=== PATIENT | female | born 1950 | race Caucasian/White ===

== ENCOUNTER 2017-12-17 14:09 | Inpatient (IN) | payer MEDICARE, OTHER ==
[~2017-12-17] VITALS: Ht 175.3 cm; Wt 87.1 kg
[2017-12-17 14:19] VITALS: BP 140/67
[2017-12-17] MEDS ORDERED: LISINOPRIL-HCT1 EAC2 PO (14:26)
[2017-12-17] MEDS ORDERED: NORVASC5 MG PO (14:27)
[2017-12-17] MEDS ORDERED: RANITIDINE 150150 M1 PO (14:27)
[2017-12-17] MEDS ORDERED: PRILOSEC 20 MG20 MG PO (14:28)
[2017-12-17] MEDS ORDERED: METFORMIN HCL500 MG PO (14:28)
[2017-12-17] MEDS ORDERED: MOBIC15 MG PO (14:28)
[2017-12-17] MEDS ORDERED: HYDROCODONE-AP1 EAC6 PO (14:29)
[2017-12-17] MEDS ORDERED: NORTRIPTYLINE H25 M3 PO (14:29)
[2017-12-17] MEDS ORDERED: LIORESAL 10 MG10 MG PO (14:29)
[2017-12-17] MEDS ORDERED: NASACORT10.8 ML NASAL (14:30)
[2017-12-17] MEDS ORDERED: PAXIL20 MG PO (14:30)
[2017-12-17] MEDS ORDERED: EPIPEN0.3 MG/0.1 IM (14:31)
[2017-12-17] MEDS ORDERED: PREDNISONE 20 M20 MG PO (14:32)
[2017-12-17 15:05] LABS: HEMOGLOBIN 11.6 gm/dL (12.0-15.0); MCHC 33.1 g/dL (28.0-37.0); MCV 90.8 fL (80.0-100.0); MPV 7.3 fl. (7.2-11.1); NUCLEATED RBCS 0 /100WBC; PLATELET COUNT* 206 thou/uL (150-400); RBC 3.86 mil/uL (4.20-5.00); RDW-CV 14.2 % (10.5-14.5); WBC 13.5 thou/uL (4.0-11.0)
[2017-12-17 15:14] LABS: ANION GAP 6 mmol/L (7-16); BUN 12 mg/dL (7-18); CALCIUM 8.6 mg/dL (8.5-10.1); CHLORIDE 94 mmol/L (98-107); CO2 29 mmol/L (21-32); CREATININE 0.8 mg/dL (0.6-1.3); GLUCOSE 123 mg/dL (70-99); POTASSIUM 3.2 mmol/L (3.5-5.1); SODIUM 129 mmol/L (136-145)
[2017-12-17 15:15] LABS: APTT 26.9 Seconds (25.0-31.3); INR 1.1; PROTIME 10.7 Seconds (9.20-11.50)
[2017-12-17 15:16] LABS: URINE BILIRUBIN NEGATIVE (Negative); URINE BLOOD NEGATIVE (Negative); URINE CLARITY CLEAR; URINE COLOR YELLOW; URINE GLUCOSE-RANDOM NEGATIVE (Negative); URINE KETONES NEGATIVE (Negative); URINE LEUKOCYTES-REFLEX 1+ (Negative); URINE PROTEIN NEGATIVE (Negative); URINE SPECIFIC GRAVITY <= 1.005 (1.005-1.030); URINE UROBILINOGEN 0.2 E.U./dl (0.2-1.0)
[2017-12-17 15:22] LABS: URINE NITRITE-REFLEX POSITIVE (Negative)
[2017-12-17 15:25] LABS: ALBUMIN 3.6 g/dL (3.4-5.0); ALKALINE PHOSPHATASE 87 U/L (46-116); NT-PRO BRAIN NAT PEPTIDE 381 pg/mL (<300); SGOT 22 U/L (15-37); SGPT 25 U/L (30-65); TOTAL PROTEIN 6.4 g/dL (6.4-8.2); TROPONIN-I LEVEL <0.06 ng/mL (<0.06)
[2017-12-17 15:39] LABS: BACTERIA-REFLEX >30 Many /HPF (None Seen); MUCUS None Seen strn/LPF (None Seen); SQUAMOUS 4-10 Moderate /LPF (0-3)
[2017-12-17 15:40] LABS: CASTS None Seen /LPF (None Seen); CRYSTALS None Seen /LPF (None Seen); URINE RBC None Seen /HPF (0-2); URINE WBC-REFLEX 0-5 Rare /HPF (0-5)
[2017-12-17 16:00] LABS: ABSOLUTE LYMPHOCYTES 0.5 thou/uL (0.8-5.3); ABSOLUTE MONOCYTES 0.5 thou/uL (0.0-1.2); ABSOLUTE NEUTROPHILS 12.4 thou/uL (1.6-8.1)
[2017-12-17 16:01] LABS: PLATELET ESTIMATE ADEQUATE
[2017-12-17 16:21] VITALS: BP 119/62
[2017-12-17 16:45] VITALS: BP 116/60
[2017-12-17 20:00] VITALS: BP 103/61
[2017-12-17 23:46] VITALS: BP 115/65
[2017-12-18 03:53] VITALS: BP 128/73
[2017-12-18 04:54] LABS: CHOLESTEROL 142 mg/dL (<200); HDL CHOLESTEROL 63 mg/dL (>40); LDL CHOLESTEROL 71 mg/dL (<100); TC:HDL 2.3 Ratio (Not establshd); TRIGLYCERIDE 42 mg/dL (<150); VLDL 8 mg/dL (<40)
[2017-12-18 04:56] LABS: SERUM ASSESSMENT CLEAR
[2017-12-18 07:30] VITALS: BP 141/82
[2017-12-18 11:33] VITALS: BP 142/86
[2017-12-18] MEDS ORDERED: CEFDINIR300 MG PO (12:20)
[2017-12-18 12:36] VITALS: BP 142/86
[2017-12-18 14:07] LABS: GLYCOHEMOGLOBIN (HGB A1C) 5.4 % (4.8-5.6)
--- NOTE | 2017-12-19 14:37 | EKG ---
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
--- NOTE | 2017-12-27 09:40 | CON ---
[address] [address] CONSULTATION Name: UDAY ALCANTAR Room: [address] IN .R.#: [id number] Admission: 12/17/17 Attend Phys: Neto Avila Discharge: 12/18/17 Date of : 50 Report #: [id number] THIS REPORT FOR: //name// CC: Robson Wiley DATE OF SERVICE: 12/18/2017 HISTORY OF PRESENT ILLNESS: This is a 67-year-old female patient, who was evaluated by me for dizziness. The patient gives a history that yesterday she got up and got dizzy. She was wobbly. There was some question whether she was confused or not. This Emergency Room notes indicate she was. She does not think she was much confused. She did have some nausea with it. Dizziness was severe. She has become much better. There are no aggravating or relieving factors. REVIEW OF SYSTEMS: Indicate that 2 years ago, she had pneumonia. She had similar symptoms that time. She does have a history of diabetes. She does not know what her blood sugar was when it happened. She does have a history of hypertension and she takes medications for that. When she came in, her blood pressure was 140/70. She denies any prior history of stroke. She indicates she is retired. She used to have a stressful job. She does not believe she has any signs of dementia. She has a history of back surgery in the past. I carried out the 14-point review of system and that was her relevant 14-point review of system. She is not having any ophthalmological, cardiac, respiratory, constitutional, dermatological, hematological, throat, psychiatric and allergic symptom associated with present symptomatology. She does have a history of depression. PAST MEDICAL HISTORY: Negative for any stroke, but is positive for similar problem when she had pneumonia. FAMILY HISTORY: Negative for early age stroke. SOCIAL HISTORY: She does not drink any alcohol. PHYSICAL EXAMINATION: Indicate that the patient is alert, responsive, able to follow simple commands. She was able to tell me the month, but did not tell me the exact date. She did not know who the president was. She know what hospital she is in. Her memory is slightly diminished, but I do not know what her baseline is. Cranial nerve examination 2-12 is unremarkable. She has symmetrical strength, sensation, reflexes and tone in all 4 extremities. There is no meningeal sign at all and I checked her pretty thoroughly. There is no carotid bruit. There is no papilledema. She is reasonably well-developed individual who does not have any dysmorphic features of eyes, ears and face. Her vision and hearing looks adequate and she has no [place] [address] CONSULTATION Name: UDAY ALCANTAR Neto Room: [address] M.R.#: [id number] Admission: 12/17/17 Attend Phys: Neto Avila Discharge: 12/18/17 Date of : 50 Report #: [id number] are palpable and she has no edema, cyanosis or jaundice. Blood pressure is 128/73, respirations 16, pulse is 84, temperature is 98.3. Cardiac examination was unremarkable. She has no respiratory difficulty or rhonchi on either side. Blood pressure is 128/73, respirations 16, pulse is 84, temperature is 98.3. At one time, her temperature was trace high. LABORATORY DATA: Indicate that her white count is slightly high at 13.5. Her sodium is low at 129. She did have an MRI of the brain, MRA of the head and neck that was unremarkable. IMPRESSION: It looks like the patient's symptoms were because of either systemic infection or labyrinthitis. There is no clearcut evidence for central nervous system infection, but that cannot be excluded. Stroke is pretty unlikely with a normal MRI and should be considered mostly excluded. She does have hyponatremia that may be contributing to her symptoms, especially the symptoms of confusion. I do not know what the etiology is. RECOMMENDATIONS: 1. EEG. 2. TSH, vitamin B12. 3. I recommended spinal tap to exclude any pathology there, but she does not want to do the spinal tap. She said she will think about it and let me know if she changes her mind. Otherwise, I think we will see how she does today, especially with the correction of electrolytes and with the PT/OT. Thank you very much for this referral and if you have any question, please feel free to contact me. <ELECTRONICALLY SIGNED> By: Sarabjit Ayala MD 12/27/17 0940 0758 [id number] Ayala MD /nt
--- NOTE | 2017-12-27 09:40 | EEG ---
[address] [address] EEG STUDY REPORT Name: UDAY ALCANTAR Room: [address] IN M.R.#: [id number] Admission: 12/17/17 Attend Phys: Neto Avila Discharge: 12/18/17 Date of : 50 Report #: [id number] THIS REPORT FOR: //name// CC: Robson Wiley DATE OF SERVICE: 12/18/2017 This patient is being evaluated for vertigo. EEG was done to evaluate the possibility of seizure. EEG was done by placing the electrodes by standard 10-20 system of electrode placement. Both referential and sequential montages were used for recording. Background activity in this patient's EEG is about 10 Hz and 40 microvolt. This is a symmetrical activity. The patient went to sleep that is associated with bilaterally symmetrical sleep spindle and vertex sharp waves. Photic stimulation is unremarkable. Throughout the record, no active epileptiform activity was noticed. IMPRESSION: This patient's EEG is unremarkable. <ELECTRONICALLY SIGNED> By: Sarabjit Ayala MD 12/27/17 0940 1304 [id number] Ayala MD /nt
== END 2017-12-18 13:19 | disposition home or self-care (01) | DRG 690 ==
LOC: M.ERS 14:09 → M.TBA-ER 15:43 → M.2W 16:32
PROVIDERS: Emergency Medicine Emergency Medical Services; ADMIT Internal Medicine
DX: N39.0 Urinary tract infection, site not specified (principal); E87.1 Hypo-osmolality and hyponatremia; R65.10 Systemic inflammatory response syndrome (SIRS) of non-infectious origin without acute organ dysfunction; E11.9 Type 2 diabetes mellitus without complications; I10 Essential (primary) hypertension; Z79.84 Long term (current) use of oral hypoglycemic drugs; Z79.899 Other long term (current) drug therapy; Z88.1 Allergy status to other antibiotic agents; Z85.3 Personal history of malignant neoplasm of breast

== ENCOUNTER → 2018-08-25 | Outpatient (CLI) | payer MEDICARE, OTHER ==
[~2018-08-25] MED LIST: CEFDINIR300 MG PO; EPIPEN0.3 MG/0.1 IM; HYDROCODONE-AP1 EAC6 PO; LIORESAL 10 MG10 MG PO; LISINOPRIL-HCT1 EAC2 PO; METFORMIN HCL500 MG PO; MOBIC15 MG PO; NASACORT10.8 ML NASAL; NORTRIPTYLINE H25 M3 PO; NORVASC5 MG PO; PAXIL20 MG PO; PREDNISONE 10 M10 MG PO; PREDNISONE 20 M20 MG PO; PRILOSEC 20 MG20 MG PO; RANITIDINE 150150 M1 PO; ROBAXIN 750 MG750 M1; VANIQA45 GM
== END ==
LOC: M.MRI 13:03
DX: S83.281A Other tear of lateral meniscus, current injury, right knee, initial encounter (principal); S83.241A Other tear of medial meniscus, current injury, right knee, initial encounter; M17.11 Unilateral primary osteoarthritis, right knee; M25.461 Effusion, right knee; M25.761 Osteophyte, right knee; M71.21 Synovial cyst of popliteal space [Baker], right knee; X58.XXXA Exposure to other specified factors, initial encounter; Y93.89 Activity, other specified; Y92.89 Other specified places as the place of occurrence of the external cause; Y99.8 Other external cause status

== ENCOUNTER 2018-09-20 08:39 | Inpatient (IN) | payer MEDICARE, OTHER ==
[2018-09-08 09:33] LABS: HEMATOCRIT 32.7 % (37.0-47.0); HEMOGLOBIN 10.7 gm/dL (12.0-15.0); MCH 29.7 pg (26.0-34.0); MCHC 32.7 g/dL (28.0-37.0); MCV 90.9 fL (80.0-100.0); MPV 7.4 fl. (7.2-11.1); RBC 3.6 mil/uL (4.20-5.00); RDW-CV 15.5 % (10.5-14.5); WBC 5.9 thou/uL (4.0-11.0)
[2018-09-08 09:41] LABS: PROTIME 10.2 Seconds (9.20-11.50)
[2018-09-08 09:52] LABS: ALBUMIN 3.4 g/dL (3.4-5.0); CALCIUM 9.2 mg/dL (8.5-10.1); POTASSIUM 4.3 mmol/L (3.5-5.1); TOTAL BILIRUBIN 0.2 mg/dL (<0.1-1.0); TOTAL PROTEIN 6.4 g/dL (6.4-8.2)
[2018-09-08 11:03] LABS: URINE BILIRUBIN NEGATIVE (Negative); URINE BLOOD NEGATIVE (Negative); URINE CLARITY CLEAR; URINE COLOR YELLOW; URINE GLUCOSE-RANDOM NEGATIVE (Negative); URINE KETONES NEGATIVE (Negative); URINE LEUKOCYTES-REFLEX NEGATIVE (Negative); URINE NITRITE-REFLEX NEGATIVE (Negative); URINE PROTEIN NEGATIVE (Negative); URINE UROBILINOGEN 0.2 E.U./dl (0.2-1.0)
--- NOTE | 2018-09-08 15:08 | EKG ---
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
[~2018-09-20] VITALS: Ht 175.3 cm; Wt 83.9 kg
[~2018-09-20 08:39] MED LIST changes: -VANIQA45 GM; +VANIQA45 GM TOP
[2018-09-20 08:50] VITALS: BP 122/83
[2018-09-20] MEDS ORDERED: LOSARTAN-HCTZ1 EACH PO (08:56)
[2018-09-20 14:37] VITALS: BP 111/63
[2018-09-20 16:00] VITALS: BP 120/66
[2018-09-20 20:00] VITALS: BP 113/72
[2018-09-20] MEDS ORDERED: NEURONTIN600 MG PO (21:29)
[2018-09-21 00:03] VITALS: BP 110/58
[2018-09-21 04:10] VITALS: BP 122/70
[2018-09-21 05:32] LABS: HEMATOCRIT 26.1 % (37.0-47.0); HEMOGLOBIN 8.7 gm/dL (12.0-15.0)
[2018-09-21 07:50] VITALS: BP 166/80
[2018-09-21 11:48] VITALS: BP 133/68
[2018-09-21 15:19] VITALS: BP 121/65
[2018-09-21 20:00] VITALS: BP 134/74
[2018-09-22 04:23] LABS: HEMOGLOBIN 9.3 gm/dL (12.0-15.0)
[2018-09-22 11:46] VITALS: BP 134/71
[2018-09-22] MEDS ORDERED: XARELTO10 MG PO (15:18)
[2018-09-22] MEDS ORDERED: PERCOCET PO (15:18)
[2018-09-22 15:40] VITALS: BP 114/69
--- NOTE | 2018-09-26 10:51 | OP ---
[facility] [address] [place] [address] OPERATIVE REPORT Name: UDAY ALCANTAR Room: [address] IN .R.#: [id number] Admission: 09/20/18 Attend Phys: Racheal Ruiz Discharge: 09/22/18 Date of : 50 Report #: [id number] THIS REPORT FOR: //name// CC: Marciano Sotelo DATE OF SERVICE: 09/20/2018 PREOPERATIVE DIAGNOSIS: Right knee osteoarthritis. POSTOPERATIVE DIAGNOSIS: Right knee osteoarthritis. PROCEDURE: Right total knee arthroplasty. SURGEON: Marciano Mills II, DO. RN BUILDING: DMITRI Carter. ANESTHESIA: General endotracheal. ESTIMATED BLOOD LOSS: 50 mL. ANTIBIOTICS: Ancef preoperatively. DRAINS: Medium Hemovac. COMPLICATIONS: None. CONDITION: The patient is stable to recovery room. IMPLANTS: Listed in the operative record and progress note. BRIEF HISTORY: The patient was seen in the preoperative area. Preoperative H and P was performed. Site was marked, questions were answered. Risks and benefits were discussed with the patient in detail about the surgery. The patient wished to proceed assuming all risks. DESCRIPTION OF PROCEDURE: The patient was taken to the operative suite, placed supine on the operating table and given appropriate anesthesia. A well-padded tourniquet was applied to the upper thigh, was inflated to 300 mmHg after gravity exsanguination for duration of procedure. The operative knee was sterilely prepped and draped. Surgery begun by midline incision, this was carried down through the subcutaneous tissues. A medial parapatellar arthrotomy was performed and carried down to bone. The patella was then everted and excess soft tissues were removed from around the femur. A femoral cutting block was [facility] [address] [id number] OPERATIVE REPORT Name: UDAY ALCANTAR Room: [address] IN [facility].#: [id number] Admission: 09/20/18 Attend Phys: Racheal Ruiz Discharge: 09/22/18 Date of : 50 Report #: [id number] then applied, checked with a drop lizbeth for rotational alignment, pinned in appropriate position and appropriate cuts were made. The 4-in-1 cutting block was then applied, checked for rotational alignment, pinned in appropriate position and appropriate cuts were made. The tibia was then exposed. Excess meniscus was removed. Retractor was placed on the collateral ligaments. The tibial cutting block was then applied, pinned in appropriate position, checked with a drop lizbeth for rotational alignment and slope and appropriate cut was made and excess bone was removed. The femur was then applied and the box cut was reamed. This was then trialed with appropriate spacer, which showed excellent fit and fill and excellent stability of the knee through all range of motion. The patella was reamed in appropriate fashion and sized to appropriate size. Three peg holes were drilled, and it was then trialed and showed excellent flexion, extension, excellent tracking of the patella within the groove. These trials were then removed. The tibia was punched in appropriate fashion. Bone ends were cleansed with Pulsavac irrigation and cement was mixed and applied to the final implants. These were malleted in position, held the knee in extension and compression to allow cement to cure. After it cured, excess was removed using a Lamar and osteotome. The wound was then copiously irrigated and the final spacer was then malleted in position. The tourniquet was deflated. Hemostasis was obtained with electrocautery. Pain cocktail was injected. PRP gel sprayed throughout internal aspects of the knee. Medium Hemovac drain was applied. The capsule was closed with 2 FiberWire and 1 Vicryl in [id number] fashion. Skin was closed with 2-0 Vicryl and running 3-0 Monocryl. Dermabond and sterile dressing was applied. Srinivas wrap and PolarCare applied. The patient transported to recovery room in stable condition. Counts were correct throughout the procedure. <ELECTRONICALLY SIGNED> By: Marciano Mills II, DO 09/26/18 1051 1155 [id number] Mills II, DO /nt
== END 2018-09-22 17:40 | disposition home health service (06) | DRG 470 ==
LOC: M.TBA 08:39 → M.PRE 10:18 → M.ORTHSURG 14:01
PROVIDERS: Orthopaedic Surgery; ADMIT Internal Medicine
PROC: 0SRC0J9 Replacement of Right Knee Joint with Synthetic Substitute, Cemented, Open Approach (ICD-10-PCS; principal; 2018-09-20)
DX: M17.11 Unilateral primary osteoarthritis, right knee (principal); D62 Acute posthemorrhagic anemia; F32.9 Major depressive disorder, single episode, unspecified; K21.9 Gastro-esophageal reflux disease without esophagitis; N18.2 Chronic kidney disease, stage 2 (mild); Z85.3 Personal history of malignant neoplasm of breast; Z88.8 Allergy status to other drugs, medicaments and biological substances; Z79.899 Other long term (current) drug therapy